=== PATIENT | female | born 1965 | race Caucasian/White ===

== ENCOUNTER 2017-11-24 07:36 | Outpatient (CLI) | payer BC ==
--- NOTE | 2017-11-24 10:21 | CT ---
CT ABDOMEN AND PELVIS WITH CONTRAST: Date: 11/24/17 HISTORY: K57.92, diverticulitis. Left lower quadrant pain. COMPARISON: None. FINDINGS: The lung bases are clear. No pericardial effusion. There is focal inflammation of the sigmoid colon w hich is thickened and around a diverticulum and less likely a contained perforation, series 602, imag e 61. The diverticulum is filled with air and not fluid. Remainder of the colon is unremarkable. There is a hypodensity of the right adnexa measuring up to 2. 5 cm. Appendix is visualized and is normal. There is inflammation within the space of Retzius. Mild t hickening of the left lateral urinary bladder wall. Kidneys are unremarkable. Aortoiliac contour is nonaneurysmal. Small reactive retroperitoneal lymph n odes. No hydroureteronephrosis. Mild degenerative narrowing L4-5 and L5-S1 disc spaces. IMPRESSION: 1. Acute sigmoid diverticulitis with what appears to be an air-filled diverticulum and less likely a contained perforation, series 602, image 61. 2. Likely reactive thickening of the left lateral urinary bladder wall. 3. Hypodensity of the right adnexa measuring 2.7 cm. Nonemergent follow-up pelvic ultrasound may be beneficial. POS: OFF
== END 2017-11-24 07:37 | disposition home or self-care (01) ==
LOC: SCSCT 07:36
PROVIDERS: ATTEND Family Medicine
DX: K57.32 Diverticulitis of large intestine without perforation or abscess without bleeding (principal); R93.8 Abnormal findings on diagnostic imaging of other specified body structures
CPT/HCPCS: 74177

== ENCOUNTER 2018-07-21 10:14 | Outpatient (CLI) | payer BC | END 2018-07-21 10:15 | disposition home or self-care (01) | LOC: BICMAMMO 10:14 | PROVIDERS: ATTEND Obstetrics & Gynecology | DX: Z12.31 Encounter for screening mammogram for malignant neoplasm of breast (principal) | CPT/HCPCS: 77063; 77067 ==

== ENCOUNTER 2019-07-24 15:42 | Outpatient (CLI) | payer BC ==
--- NOTE | 2019-07-24 16:23 | RAD ---
PA AND LATERAL CHEST: HISTORY: Hyponatremia. Right sided chest pain. FINDINGS: The heart size is normal. The aorta is tortuous. The lungs are well expanded without lobar consolidat ion, pneumothoraces or pleural effusions. There are mild degenerative changes in the spine. IMPRESSION: No radiographic evidence of acute cardiopulmonary process. POS: [facility]
== END 2019-07-24 15:43 | disposition home or self-care (01) ==
LOC: BICRAD 15:42
PROVIDERS: ATTEND Family Medicine
DX: E87.1 Hypo-osmolality and hyponatremia (principal)
CPT/HCPCS: 36415; 71046; 80048

== ENCOUNTER 2019-08-28 08:15 | Outpatient (CLI) | payer BC ==
--- NOTE | 2019-08-28 09:05 | BD ---
DEXA BONE DENSITY STUDY: HISTORY: Postmenopausal. FINDINGS: Lumbar Spine: BMD (g/cm2) L1 0.989 T-Score: +0.0 L2 1.084 T-Score: +0.5 L3 1.118 T-Score: +0.3 L4 1.259 T-Score: +1.8 L1-L4 1.128 T-Score: +0.7 Femoral Neck: 0.917 T-Score: +0.6 Total Femur: 1.209 T-Score: +2.2 Impression: Normal bone mineral density of the lumbar spine and left femoral neck. POS: [facility]
== END 2019-08-28 08:16 | disposition home or self-care (01) ==
LOC: BICMAMMO 08:15
PROVIDERS: ATTEND Obstetrics & Gynecology
DX: Z13.820 Encounter for screening for osteoporosis (principal)
CPT/HCPCS: 77080

== ENCOUNTER 2022-09-30 16:35 | Outpatient (CLI) | payer BC | END 2022-09-30 16:36 | disposition home or self-care (01) | LOC: SCSRAD 16:35 | PROVIDERS: ATTEND Chiropractor | DX: M47.22 Other spondylosis with radiculopathy, cervical region (principal) | CPT/HCPCS: 72040 ==